=== PATIENT | male | born 1925 | race Caucasian/White ===

== ENCOUNTER → 2017-04-19 | Outpatient (CLI) | payer MEDICARE, OTHER ==
[2016-05-14 20:12] VITALS: BP 148/85
[~2017-04-19] MED LIST: ASPI325T11 PO; ASPI325T8 PO; ATEN25TA PO; ATEN50TA PO; BENZ100C PO; CARV6.252 PO; CELE50CA PO; CYAN1TAB19 PO; DEXT118L3 PO; DILT180C29 PO; FAMO40TA57 PO; FERR325T58 PO; FURO-68 PO; FURO20TA3 PO; FURO40TA4 PO; GABA-586 PO; GLIM1TAB2 PO; GLIM2TAB2 PO; LEVO750T31 PO; LISI10TA2 PO; METF-620 PO; METF500T4 PO; MULT-245 PO; MULT-246 PO; Oxycodone Hcl/Acetaminophen PO; PANT40TA3 PO; POTA10TA12 PO; PRED-220 PO; PROM5SYR2 PO; SIMV40TA3 PO; SODI30SP NS; TOPI25TA52 PO; WARF5TAB7 PO; WARF7.5T48 PO
--- NOTE | 2017-04-19 14:21 | RAD ---
Examination: 2 views of the chest History: History of shortness of breath Comparison: 12/27/2015 Findings: Mild cardiomegaly is unchanged. Tortuous appearing aorta similar to prior exam. Small nodule identified in the right lower lobe of lung base similar to prior exam. There is no acute infiltrate or visualized pneumothorax. Mild prominent appearing bilateral basal lung markings likely chronic changes. Impression: Mild prominent appearing bilateral interstitial lung markings likely chronic changes.
== END | disposition home or self-care (01) ==
LOC: RAD 13:48
PROVIDERS: ATTEND Internal Medicine Pulmonary Disease
DX: R91.8 Other nonspecific abnormal finding of lung field (principal); R06.02 Shortness of breath
CPT/HCPCS: 71020